=== PATIENT | male | born 1990 | race Caucasian/White ===

== ENCOUNTER 2019-10-15 03:53 | Emergency (ER) | payer OTHER ==
[~2019-10-15] VITALS: Ht 170.2 cm; Wt 73.0 kg
[2019-10-15 04:34] VITALS: BP 122/75
== END 2019-10-15 04:35 | disposition home or self-care (01) ==
LOC: ER 04:19
DX: S60.561A Insect bite (nonvenomous) of right hand, initial encounter (principal); L03.113 Cellulitis of right upper limb; W57.XXXA Bitten or stung by nonvenomous insect and other nonvenomous arthropods, initial encounter; Y93.89 Activity, other specified; Y92.018 Other place in single-family (private) house as the place of occurrence of the external cause
CPT/HCPCS: 99283

== ENCOUNTER 2021-05-30 14:29 | Emergency (ER) | payer SELFPAY ==
[~2021-05-30] VITALS: Ht 170.2 cm; Wt 73.0 kg
[~2021-05-30 14:29] MED LIST: DOCU-150 MT; OMEP20CA14 MT
[2021-05-30 14:50] VITALS: BP 110/69
[2021-05-30] MEDS ORDERED: ONDANSETRON HCL 4MG/2ML INJ IV STA (15:33)
[2021-05-30] MEDS ORDERED: SODIUM CHLORIDE 0.9% 1,000 ML IV ONE (15:45)
[2021-05-30 16:16] LABS: BASOPHILS % 0.4 % (0.0-2.0); EOSINOPHILS % 1.2 % (0.0-5.0); HEMATOCRIT. 44.8 % (42.0-52.0); HEMOGLOBIN. 15.3 g/dL (14.0-18.0); LYMPHOCYTES % 22.4 % (20.0-50.0); MEAN CORPUSCULAR HEMOGLOBIN 29.9 pg (28.0-32.0); MEAN CORPUSCULAR VOLUME 87.3 fL (80.0-94.0); MEAN PLATELET VOLUME 8.2 fl (7.4-10.4); MONOCYTES % 7.8 % (2.0-8.0); NEUTROPHILS % 68.2 % (40.0-76.0); PLATELET 270 x1000/uL (130-400); RED BLOOD CELL COUNT 5.13 mill/uL (4.7-6.1); RED CELL DISTRIBUTION WIDTH 14.2 % (11.6-14.6)
[2021-05-30 16:22] LABS: CHLORIDE 106 mEq/L (98-107)
== END 2021-05-31 00:37 | disposition left against medical advice (07) ==
LOC: ER 14:29
DX: R10.31 Right lower quadrant pain (principal); Z53.21 Procedure and treatment not carried out due to patient leaving prior to being seen by health care provider
CPT/HCPCS: 36415; 80053; 83690; 85025; J7030; 99283

== ENCOUNTER 2023-06-08 08:53 | Emergency (ER) | payer SELFPAY ==
[~2023-06-08] VITALS: Ht 170.2 cm; Wt 81.6 kg
[2023-06-08] MEDS: IBUPROFEN 600MG TABLET PO ONE (10:00)
[2023-06-08] MEDS ORDERED: IBUP-2029 MT (11:15)
[2023-06-08] MEDS ORDERED: BO1 TP (11:27)
[2023-06-08] MEDS: BACITRACIN ZINC OINT UDPKT TOP ONE (11:32)
[2023-06-08 11:40] VITALS: BP 120/86; PULSE 92; RESP 16; TEMP 98.2
== END 2023-06-08 11:41 | disposition home or self-care (01) ==
LOC: ER 08:53
DX: S40.012A Contusion of left shoulder, initial encounter (principal); F12.10 Cannabis abuse, uncomplicated; Z79.899 Other long term (current) drug therapy; W18.39XA Other fall on same level, initial encounter; Y93.89 Activity, other specified; Y92.89 Other specified places as the place of occurrence of the external cause; Y99.8 Other external cause status
CPT/HCPCS: 73030; 99283; A4565